=== PATIENT | male | born 1975 | race American Indian/Alaskan Native ===

== ENCOUNTER 2021-09-03 08:33 | Emergency (ER) | payer MEDICARE ==
--- NOTE | 2021-09-03 10:29 | Emergency Department Report ---
ED Male HPI - General Chief complaint: Urogenital-Male Stated complaint: UTI Time Seen by Provider: 09/03/21 10:27 Source: patient, EMS Mode of arrival: Stretcher Limitations: No Limitations - History of Present Illness Initial comments: Patient is a 46-year-old male that comes to the emergency room yelling in pain because he has not been able to urinate for 12 hours. He states that he has had this before in the setting of UTI. He denies back pain. He endorses fullness over his suprapubic area and difficulty urinating. He states he has not been able to pass any urine in 12 hours. He denies fever or chills. He denies back pain. Patient states he does not follow-up with a urologist. MD Complaint: other -: Gradual, hour(s) Location: penis Radiation: none Consistency: constant denies other symptoms - Related Data Sexually active: Yes Allergies Allergy/AdvReac Type Severity Reaction Status Date / Time No Known Allergies Allergy Verified 09/03/21 10:30 ED Review of Systems ROS: Stated complaint: UTI Other details as noted in HPI Comment: All other systems reviewed and negative ED Past Medical Hx - Past Medical History Previous Medical History?: Yes Additional medical history: urinary retention - Surgical History Past Surgical History?: No - Family History Family history: no significant - Social History Smoking Status: Never Smoker Substance Use Type: Alcohol ED Physical Exam - General Limitations: No Limitations General appearance: alert, in no apparent distress - Head Head exam: Present: atraumatic, normocephalic - Eye Eye exam: Present: normal appearance - ENT ENT exam: Present: mucous membranes moist - Neck Neck exam: Present: normal inspection - Respiratory Respiratory exam: Present: normal lung sounds bilaterally. Absent: respiratory distress - Cardiovascular Cardiovascular Exam: Present: regular rate, normal rhythm. Absent: systolic murmur, diastolic murmur, rubs, gallop - GI/Abdominal GI/Abdominal exam: Present: soft, normal bowel sounds - Rectal Rectal exam: Present: deferred - Extremities Exam Extremities exam: Present: normal inspection - Back Exam Back exam: Present: normal inspection - Neurological Exam Neurological exam: Present: alert, oriented X3 - Psychiatric Psychiatric exam: Present: normal affect, normal mood - Skin Skin exam: Present: warm, dry, intact, normal color. Absent: rash ED Course Vital Signs 09/03/21 09/03/21 09/03/21 08:36 11:09 13:26 Pulse Rate 80 82 85 Respiratory 18 17 Rate Blood Pressure 160/103 176/105 173/100 [Left] O2 Sat by Pulse 99 100 99 Oximetry 09/03/21 14:50 Pulse Rate 88 Respiratory 18 Rate Blood Pressure 145/66 [Left] O2 Sat by Pulse 99 Oximetry ED Medical Decision Making - Lab Data Result diagrams: 09/03/21 11:36 09/03/21 11:36 - Medical Decision Making Urinary retention on admission. States it has been since yesterday since he urinated. A Arriaga was placed and at least a liter of urine came out. It was clear and colorless. Patient states the last time that he had this it was associated with infection and he had hematuria. He denies currently seeing the urologist. UA was sent and is pending. Vital signs are normal he has no fever or tachycardia. Vital Signs 09/03/21 08:36 Pulse Rate 80 Blood Pressure 160/103 [Left] O2 Sat by Pulse 99 Oximetry Lab Results 09/03/21 09/03/21 09/03/21 Range/Units 11:07 11:36 11:36 WBC 6.8 (4.5-11.0) K/mm3 RBC 5.01 (3.65-5.03) M/mm3 Hgb 15.0 (11.8-15.2) gm/dl Hct 44.4 (35.5-45.6) % MCV 89 (84-94) fl MCH 30 (28-32) pg MCHC 34 (32-34) % RDW 12.5 L (13.2-15.2) % Plt Count 252 (140-440) K/mm3 Sodium 137 (137-145) mmol/L Potassium 2.4 L* (3.6-5.0) mmol/L Chloride 97.4 L (98-107) mmol/L Carbon Dioxide 24 (22-30) mmol/L Anion Gap 18 mmol/L BUN 7 L (9-20) mg/dL Creatinine 0.7 L (0.8-1.3) mg/dL Estimated GFR > 60 ml/min BUN/Creatinine Ratio 10 % Glucose 107 H (75-100) mg/dL Calcium 9.6 (8.4-10.2) mg/dL Urine Color Straw (Yellow) Urine Turbidity Clear (Clear) Urine pH 8.0 H (5.0-7.0) Ur Specific [place] 1.008 (1.003-1.030) Urine Protein <15 mg/dl (Negative) mg/dL Urine Glucose (UA) Neg (Negative) mg/dL Urine Ketones Neg (Negative) mg/dL Urine Blood Mod (Negative) Urine Nitrite Neg (Negative) Urine Bilirubin Neg (Negative) Urine Urobilinogen < 2.0 (<2.0) mg/dL Ur Leukocyte Esterase Neg (Negative) Urine WBC (Auto) < 1.0 (0.0-6.0) /HPF Urine RBC (Auto) 43.0 (0.0-6.0) /HPF Labs noted. K noted to be 2.4. Patient did take the potassium. Given his hematuria and concern for urinary obstruction a CT was ordered. The patient refused CT scan. He became belligerent and angry in the emergency room. He signed out AMA. Nurses remove the Arriaga prior to him being discharged. I went to the bedside and told the patient he could if his low potassium. He said okay. He said he had life to get home with. Patient signed his AMA form and left the ER. - Differential Diagnosis urinary retention Critical care attestation.: If time is entered above; I have spent that time in minutes in the direct care of this critically ill patient, excluding procedure time. ED Disposition Clinical Impression: Urinary retention Disposition: 07 LEFT AWOL/ELOPED Is pt being admited?: No Does the pt Need Aspirin: No Condition: Stable Referrals: SHOLA NATARAJAN MD [Primary Care Provider] - 3-5 Days
[2021-09-03 12:34] LABS: Bilirubin,Urine NEG (Negative); Blood,Urine MOD (Negative); Color,Urine Straw (Yellow); Protein,Urine <15 mg/dL mg/dL (Negative); Urobilinogen,Urine < 2.0 mg/dL (<2.0)
[2021-09-03 12:44] LABS: WBC,Urine < 1.0 /HPF (0.0-6.0)
[2021-09-03] MEDS ORDERED: SODIUM CHLORIDE 0.9% 1000 ML 1,000 ML IV ONE (12:49)
[2021-09-03 13:13] LABS: Hematocrit 44.4 % (35.5-45.6); Mean Corpuscular HGB Conc 34 % (32-34); Mean Corpuscular Volume 89 fl (84-94); Platelet Count 252 K/mm3 (140-440); Red Blood Count 5.01 M/mm3 (3.65-5.03); Red Cell Distribution Width 12.5 % (13.2-15.2)
[2021-09-03 13:15] LABS: Blood Urea Nitrogen 7 mg/dL (9-20); Calcium 9.6 mg/dL (8.4-10.2); Hemolysis Index 4
[2021-09-03 13:21] LABS: BUN/Creatinine Ratio 10
[2021-09-03] MEDS ORDERED: POTASSIUM CHLORIDE ER 20 MEQ TAB PO ONE (13:40)
[2021-09-03 14:51] VITALS: BP 145/66
== END 2021-09-03 14:52 | disposition left against medical advice (07) ==
LOC: ED 08:33
DX: R33.9 Retention of urine, unspecified (principal); F10.20 Alcohol dependence, uncomplicated
CPT/HCPCS: 36415; 51701; 80048; 81001; 85027; 99284; J7030; 51702

== ENCOUNTER 2021-10-29 06:33 | Emergency (ER) | payer MEDICARE ==
[2021-10-29 06:38] VITALS: BP 148/88
== END 2021-10-29 08:50 | disposition left against medical advice (07) ==
LOC: ED 06:33
DX: R53.1 Weakness (principal); Z53.21 Procedure and treatment not carried out due to patient leaving prior to being seen by health care provider

== ENCOUNTER 2021-10-29 12:32 | Emergency (ER) | payer MEDICARE ==
[2021-10-29 14:13] VITALS: BP 128/90
== END 2021-10-29 15:24 | disposition left against medical advice (07) ==
LOC: ED 12:32
DX: Z00.00 Encounter for general adult medical examination without abnormal findings (principal); Z53.21 Procedure and treatment not carried out due to patient leaving prior to being seen by health care provider